=== PATIENT | female | born 1995 | race African-American/Black ===

== ENCOUNTER 2017-03-24 13:54 | Emergency (ER) | payer SELFPAY ==
[~2017-03-24] VITALS: Ht 157.5 cm; Wt 81.9 kg
[2017-03-24 15:14] VITALS: Ht 157.5 cm; Wt 81.9 kg
[2017-03-24 17:17] VITALS: BP 138/81
== END 2017-03-24 17:17 | disposition home or self-care (01) ==
LOC: ED 13:54
DX: B34.9 Viral infection, unspecified (principal)
CPT/HCPCS: J1885; J7613; J7644